=== PATIENT | female | born 1960 | race Caucasian/White ===

== ENCOUNTER → 2016-07-15 | Outpatient (CLI) | payer BC ==
[~2016-07-15] MED LIST: ALDACTAZIDE 251 EACH PO; ANTIVERT25 MG PO; ASPIR-LOW81 MG PO; BREO ELLIPTA 11 EACH INH; CARAFATE1 GM PO; COMBIPATCH 0.01 EAC1 TOP; CRESTOR20 MG PO; LIORESAL TAB 1010 MG PO; LOPRESSOR 25 MG25 MG PO; NITROSTAT0.4 MG SL; OMEPRAZOLE40 MG PO; REQUIP1 MG PO; RIZATRIPTAN10 MG PO; SINEQUAN CAP 5050 MG PO; TOPAMAX25 MG PO; WELCHOL625 MG PO; WELLBUTRIN SR150 MG PO; ZYRTEC10 MG PO
== END ==
LOC: EMI 17:30
DX: M54.5 Low back pain (principal); M48.06 Spinal stenosis, lumbar region; M51.26 Other intervertebral disc displacement, lumbar region; M47.816 Spondylosis without myelopathy or radiculopathy, lumbar region
CPT/HCPCS: 72148

== ENCOUNTER → 2016-08-07 | Outpatient (CLI) | payer BC | LOC: US 11:19 | DX: K80.00 Calculus of gallbladder with acute cholecystitis without obstruction (principal); K80.20 Calculus of gallbladder without cholecystitis without obstruction | CPT/HCPCS: 76705 ==

== ENCOUNTER → 2016-09-29 | Outpatient (CLI) | payer BC | LOC: NM 09:00 | DX: R07.9 Chest pain, unspecified (principal); R06.02 Shortness of breath; R00.2 Palpitations; R60.9 Edema, unspecified | CPT/HCPCS: 78452; 93017; A9502; J2785 ==

== ENCOUNTER → 2021-03-26 | Outpatient (CLI) | payer BC, MEDICARE ==
[~2021-03-26] MED LIST changes: +AIMOVIG AU70 MG/1 ML SQ; +ALBUTEROL1.25 MG/3 INH; +DIFLUCAN150 MG PO; +NEXIUM40 MG PO; +OMNICEF 300 MG300 MG PO; +OXYGEN; +PEPCID40 MG PO; +PYRIDIUM200 MG PO; +SINGULAIR10 MG PO; +ULTRAM50 MG PO; +VALIUM 2 MG TAB2 MG PO; +VITAMIN B-121000 MCG PO; +WELLBUTRIN SR100 MG PO; -WELLBUTRIN SR150 MG PO
== END ==
LOC: EMI 12:48
DX: M54.50 Low back pain, unspecified (principal); M47.816 Spondylosis without myelopathy or radiculopathy, lumbar region
CPT/HCPCS: 72148

== ENCOUNTER 2021-05-02 11:20 | Observation (INO) | payer BC, MEDICARE ==
[~2021-05-02] VITALS: Ht 162.6 cm; Wt 53.1 kg
[~2021-05-02 11:20] MED LIST changes: -ALBUTEROL1.25 MG/3 INH; -ASPIR-LOW81 MG PO; -NITROSTAT0.4 MG SL; -SINEQUAN CAP 5050 MG PO; -SINGULAIR10 MG PO; -ULTRAM50 MG PO
[2021-05-02 12:41] LABS: HEMOGLOBIN 15.8 gm/dl (12.3-15.3); RED BLOOD COUNT 5.17 M/UL (4.00-5.10); WHITE BLOOD COUNT 5.7 K/UL (4.5-11.0)
[2021-05-02 13:06] LABS: BUN/CREATININE RATIO 14 (0-10)
[2021-05-02] MEDS ORDERED: BEVESPI AEROS10.7 GM INH (13:08)
[2021-05-02] MEDS ORDERED: LORATADINE10 MG PO (13:08)
[2021-05-02] MEDS ORDERED: OMEPRAZOLE40 MG PO (13:09)
[2021-05-02] MEDS ORDERED: METAMUCIL PACK3.4 GM PO (13:09)
[2021-05-02] MEDS ORDERED: PROBIOTIC1 EAC1 PO (13:10)
[2021-05-02] MEDS ORDERED: ULTRAM50 MG PO (18:04)
[2021-05-02] MEDS ORDERED: SINGULAIR10 MG PO (18:05)
[2021-05-02] MEDS ORDERED: NITROSTAT0.4 MG SL (18:11)
[2021-05-02] MEDS ORDERED: ALBUTEROL1.25 MG/3 NEB (18:11)
[2021-05-02] MEDS ORDERED: ASPIRIN EC81 MG PO (18:12)
[2021-05-02] MEDS ORDERED: SINEQUAN CAP 5050 MG PO (18:13)
[2021-05-03 04:59] LABS: RED BLOOD COUNT 4.73 M/UL (4.00-5.10)
[2021-05-03 05:02] LABS: HEMOGLOBIN 13.8 gm/dl (12.3-15.3); WHITE BLOOD COUNT 2.4 K/UL (4.5-11.0)
[2021-05-03 05:25] LABS: BUN/CREATININE RATIO 15 (0-10)
[2021-05-05] MEDS ORDERED: VITAMIN C 500500 MG PO (08:43)
[2021-05-05] MEDS ORDERED: DECADRON6 MG PO (08:43)
[2021-05-05] MEDS ORDERED: CEFUROXIME500 MG PO (08:43)
== END 2021-05-05 13:04 | disposition home or self-care (01) ==
LOC: ER1 11:20 → CDU 14:02 → MED SURG 4 14:02 → 3 EAST 14:02 → MED SURG 4 22:00
PROVIDERS: Nurse Practitioner; Physician Assistant Medical; ADMIT Internal Medicine
DX: U07.1 COVID-19 (principal); J12.82 Pneumonia due to coronavirus disease 2019; J96.11 Chronic respiratory failure with hypoxia; J44.9 Chronic obstructive pulmonary disease, unspecified; M79.7 Fibromyalgia; I10 Essential (primary) hypertension; F17.210 Nicotine dependence, cigarettes, uncomplicated; Z88.5 Allergy status to narcotic agent; Z88.1 Allergy status to other antibiotic agents; Z88.6 Allergy status to analgesic agent; Z79.82 Long term (current) use of aspirin; Z79.899 Other long term (current) drug therapy
CPT/HCPCS: 36415; 36600; 71045; 80048; 81001; 82550; 82553; 82803; 83605; 83735; 83874; 84484; 85025; 85027; 86140; 93005; 94640; 94664; 94760; 96372; 96374; 96375; 96376; 99285; G0378; J0696; J1100; J1650

== ENCOUNTER → 2021-06-09 | Outpatient (CLI) | payer BC, MEDICARE ==
[~2021-06-09] MED LIST changes: +ALBUTEROL1.25 MG/3 NEB; +ASPIRIN EC81 MG PO; +BEVESPI AEROS10.7 GM INH; +CEFUROXIME500 MG PO; +DECADRON6 MG PO; +LORATADINE10 MG PO; +METAMUCIL PACK3.4 GM PO; +NITROSTAT0.4 MG SL; +PROBIOTIC1 EAC1 PO; +SINEQUAN CAP 5050 MG PO; +SINGULAIR10 MG PO; +ULTRAM50 MG PO; +VITAMIN C 500500 MG PO
== END ==
LOC: EXRD 09:59
DX: J44.9 Chronic obstructive pulmonary disease, unspecified (principal); J90 Pleural effusion, not elsewhere classified; R91.8 Other nonspecific abnormal finding of lung field
CPT/HCPCS: 71046

== ENCOUNTER → 2021-10-30 | Outpatient (CLI) | payer BC, MEDICARE | LOC: HEART 5 10:55 | DX: J44.9 Chronic obstructive pulmonary disease, unspecified (principal); R94.2 Abnormal results of pulmonary function studies | CPT/HCPCS: 94010 ==

== ENCOUNTER 2021-11-25 18:05 | Emergency (ER) | payer BC, MEDICARE ==
[2021-11-25 19:46] LABS: HEMOGLOBIN 15.3 gm/dl (12.3-15.3); RED BLOOD COUNT 4.82 M/UL (4.00-5.10); WHITE BLOOD COUNT 14.6 K/UL (4.5-11.0)
[2021-11-25 19:48] LABS: BUN/CREATININE RATIO 8 (0-10)
[2021-11-26] MEDS ORDERED: MACROBID 100 M100 MG PO (00:19)
== END 2021-11-26 00:27 | disposition home or self-care (01) ==
LOC: ER1 18:05
PROVIDERS: Physician Assistant
DX: N39.0 Urinary tract infection, site not specified (principal); R40.2410 Glasgow coma scale score 13-15, unspecified time; F17.210 Nicotine dependence, cigarettes, uncomplicated; J44.9 Chronic obstructive pulmonary disease, unspecified; Z87.440 Personal history of urinary (tract) infections; Z87.442 Personal history of urinary calculi; Z85.41 Personal history of malignant neoplasm of cervix uteri; Z88.1 Allergy status to other antibiotic agents; Z88.5 Allergy status to narcotic agent
CPT/HCPCS: 80053; 81001; 83690; 85025; 87077; 87086; 87186; 96374; 99284; J1885; Q9967